=== PATIENT | female | born 1980 | race African-American/Black ===

== ENCOUNTER 2017-01-08 20:09 | Emergency (ER) | payer OTHER ==
[~2017-01-08] VITALS: Ht 162.6 cm; Wt 48.0 kg
[~2017-01-08 20:09] MED LIST: ACYC400T PO; LOES1TAB2 PO; SPRI28TA PO
[2017-01-08 20:19] VITALS: BP 126/78; PULSE 82; RESP 20; TEMP 98.7; O2SAT 10; O2SAT 100
[2017-01-08 20:22] VITALS: PULSE 85; RESP 16; O2SAT 100
--- NOTE | 2017-01-08 21:23 | PD ---
HPI Chief Complaint: Psychiatric Symptoms Time Seen by Provider: 21:09 Travel History International Travel<30 days: No Contact w/Intl Traveler<30days: No Traveled to known affect area: No History of Present Illness HPI 36-year-old female that presents to the ED for evaluation of Dilcia nance. Patient was brought here under Ha act as apparently she made some statements to her significant other relating wanting to end her life and having a lot of stresses and struggles. She was Ha acted for her own safety. She states that the only medication she takes currently is acyclovir. She denies any chest pain or shortness of breath. She has positive . She does any drugs or alcohol. No cuts. Per patient she's been dealing with depression recently secondary to new stresses. She denies any history of psychiatric illness. PFSH Past Medical History ?: Not LMP: 12/23/16 Social History Alcohol Use: No Tobacco Use: No Substance Use: No Allergies-Medications (Allergen,Severity, Reaction): Coded Allergies: penicillin G (Unverified Allergy, Unknown, 12/18/16) Reported Meds & Prescriptions Reported Meds & Active Scripts Active Sprintec 28 (Norgestimate-Ethinyl Estradiol) 0.25-35 mg-Mcg Tab 1 Tab PO DAILY Acyclovir 400 Mg Tab 400 Mg PO BID Loestrin Fe 1/20 (Norethindrone-Ethinyl Estradiol-Fe) 1-20 Mg-Mcg Tab 1 Tab PO DAILY Review of Systems Except as stated in HPI: all other systems reviewed are Neg Physical Exam Narrative GENERAL: SKIN: Warm and dry. HEAD: Atraumatic. Normocephalic. EYES: Pupils equal and round. No scleral icterus. No injection or drainage. ENT: No nasal bleeding or discharge. Mucous membranes pink and moist. Tongue is midline. No uvula deviation. NECK: Trachea midline. No JVD. CARDIOVASCULAR: Regular rate and rhythm. No murmurs, S3, S4. RESPIRATORY: No accessory muscle use. Clear to auscultation. Breath sounds equal bilaterally. GASTROINTESTINAL: Abdomen soft, non-tender, nondistended. Hepatic and splenic margins not palpable. MUSCULOSKELETAL: Extremities without clubbing, cyanosis, or edema. No obvious deformities. Full range of motion of the upper and lower extremities bilaterally. 2+ pulses bilaterally. NEUROLOGICAL: Awake and alert. No obvious cranial nerve deficits. Motor grossly within normal limits. Five out of 5 muscle strength in the arms and legs. Normal speech. PSYCHIATRIC: Appropriate mood and affect; insight and judgment normal. Data Data Last Documented VS Vital Signs Date Time Temp Pulse Resp B/P (MAP) Pulse Ox O2 Delivery O2 Flow Rate FiO2 01/09/17 05:46 97.8 100 18 105/67 (80) 100 Orders Orders Complete Blood Count With Diff (01/08/17 20:33) Comprehensive Metabolic Panel (01/08/17 20:33) Ed Urine Pregnancytest Poc (01/08/17 20:33) Psych Screen (01/08/17 20:33) Drug Screen, Random Urine (01/08/17 20:33) Alcohol (Ethanol) (01/08/17 20:33) Salicylates (Aspirin) (01/08/17 20:33) Tylenol (Acetaminophen) (01/08/17 20:33) Diet Regular Basic (01/09/17 Breakfast) Diet Regular Basic (01/09/17 Lunch) Labs Laboratory Tests Test 01/08/17 21:00 White Blood Count 4.6 TH/MM3 Red Blood Count 4.06 MIL/MM3 Hemoglobin 12.6 GM/DL Hematocrit 38.8 % Mean Corpuscular Volume 95.6 FL Mean Corpuscular Hemoglobin 31.0 PG Mean Corpuscular Hemoglobin Concent 32.4 % Red Cell Distribution Width 12.2 % Platelet Count 342 TH/MM3 Mean Platelet Volume 7.5 FL Neutrophils (%) (Auto) 39.3 % Lymphocytes (%) (Auto) 50.5 % Monocytes (%) (Auto) 7.9 % Eosinophils (%) (Auto) 1.3 % Basophils (%) (Auto) 1.0 % Neutrophils # (Auto) 1.8 TH/MM3 Lymphocytes # (Auto) 2.3 TH/MM3 Monocytes # (Auto) 0.4 TH/MM3 Eosinophils # (Auto) 0.1 TH/MM3 Basophils # (Auto) 0.0 TH/MM3 CBC Comment DIFF FINAL Differential Comment Blood Urea Nitrogen 9 MG/DL Creatinine 0.79 MG/DL Random Glucose 82 MG/DL Total Protein 8.8 GM/DL Albumin 4.8 GM/DL Calcium Level 9.3 MG/DL Alkaline Phosphatase 60 U/L Aspartate Amino Transf (AST/SGOT) 14 U/L Alanine Aminotransferase (ALT/SGPT) 22 U/L Total Bilirubin 0.5 MG/DL Sodium Level 138 MEQ/L Potassium Level 3.5 MEQ/L Chloride Level 101 MEQ/L Carbon Dioxide Level 27.4 MEQ/L Anion Gap 10 MEQ/L Estimat Glomerular Filtration Rate 101 ML/MIN Salicylates Level LESS THAN 1.7 MG/DL Urine Opiates Screen NEG Acetaminophen Level LESS THAN 2.0 MCG/ML Urine Barbiturates Screen NEG Urine Amphetamines Screen NEG Urine Benzodiazepines Screen NEG Urine Cocaine Screen NEG Urine Cannabinoids Screen NEG Ethyl Alcohol Level LESS THAN 3 MG/DL MDM Medical Decision Making Medical Screen Exam Complete: Yes Emergency Medical Condition: Yes Medical Record Reviewed: Yes Interpretation(s) CBC & BMP Diagram 01/08/17 21:00 Total Protein 8.8 H, Albumin 4.8, Calcium Level 9.3, Alkaline Phosphatase 60, Aspartate Amino Transf (AST/SGOT) 14 L, Alanine Aminotransferase (ALT/SGPT) 22, Total Bilirubin 0.5 Differential Diagnosis Depression versus suicidal ideation versus anxiety versus adjustment disorder versus mood disorder versus bipolar disorder versus schizophrenia versus paranoid disorder versus psychosis versus substance abuse versus alcohol abuse versus alcohol induced psychosis versus homicidality addition versus cutting versus personality disorder Narrative Course 36-year-old female that presents to the ED for evaluation of psych. Patient was properly examined and was found to have signs and symptoms consistent with psychiatric illness. No sign of acute medical distress. Labs were drawn. Patient will be medically clear. Dispo pending psychiatric eval. Mental health screening was discussed with the patient. Diagnosis Primary Impression: Mood disorder Krishna Pastrana Jan 08, 2017 21:23
[2017-01-08 22:18] LABS: AUTOMATED NEUTROPHIL # 1.8 TH/MM3 (1.8-7.7); EOSINOPHIL # 0.1 TH/MM3 (0-0.4); EOSINOPHIL % 1.3 % (0.0-4.0); HEMATOCRIT 38.8 % (35.0-46.0); HEMO FLAGS DIFF FINAL; LYMPH % 50.5 % (9.0-44.0); LYMPHOCYTE # 2.3 TH/MM3 (1.0-4.8); MEAN CELL VOLUME 95.6 FL (80.0-100.0); MEAN CORPUSCULAR HGB CONC 32.4 % (32.0-36.0); MONO % 7.9 % (0.0-8.0); NEUT % 39.3 % (16.0-70.0); PLATELET COUNT 342 TH/MM3 (150-450); RED BLOOD COUNT 4.06 MIL/MM3 (4.00-5.30); RED CELL DISTRIBUTION WIDTH 12.2 % (11.6-17.2); WHITE BLOOD COUNT 4.6 TH/MM3 (4.0-11.0)
[2017-01-08 22:38] LABS: ANION GAP 10 MEQ/L (5-15); BICARBONATE 27.4 MEQ/L (21.0-32.0); BLOOD UREA NITROGEN 9 MG/DL (7-18); CHLORIDE 101 MEQ/L (98-107); GLOMERULAR FILTRATION RATE 101 ML/MIN (>89); POTASSIUM 3.5 MEQ/L (3.5-5.1); SODIUM (NA) 138 MEQ/L (136-145)
[2017-01-08 22:39] LABS: ALCOHOL LESS THAN 3 MG/DL (0-5)
[2017-01-08 22:40] LABS: ALT (GPT) 22 U/L (10-53); AST (GOT) 14 U/L (15-37)
[2017-01-08 22:41] LABS: ALKALINE PHOSPHATASE 60 U/L (45-117); TOTAL BILIRUBIN ADULT 0.5 MG/DL (0.2-1.0)
[2017-01-08 22:49] LABS: ACETAMINOPHEN LESS THAN 2.0 MCG/ML (10.0-30.0)
[2017-01-08 23:20] VITALS: BP 117/80; PULSE 80; RESP 18; TEMP 98.1; O2SAT 100
[2017-01-09 02:13] VITALS: BP 116/62; PULSE 73; RESP 18; TEMP 98.1; O2SAT 97
[2017-01-09 05:46] VITALS: BP 105/67; PULSE 100; RESP 18; TEMP 97.8; O2SAT 100
--- NOTE | 2017-01-09 10:57 | PD ---
Physical Exam Time Seen by Provider: 10:55 ALYSSA Chao, evaluated this patient and has lifted the Ha act and the patient will be discharged home. Data Data Last Documented VS Vital Signs Date Time Temp Pulse Resp B/P (MAP) Pulse Ox O2 Delivery O2 Flow Rate FiO2 01/09/17 05:46 97.8 100 18 105/67 (80) 100 Orders Orders Complete Blood Count With Diff (01/08/17 20:33) Comprehensive Metabolic Panel (01/08/17 20:33) Ed Urine Pregnancytest Poc (01/08/17 20:33) Psych Screen (01/08/17 20:33) Drug Screen, Random Urine (01/08/17 20:33) Alcohol (Ethanol) (01/08/17 20:33) Salicylates (Aspirin) (01/08/17 20:33) Tylenol (Acetaminophen) (01/08/17 20:33) Diet Regular Basic (01/09/17 Breakfast) Labs Laboratory Tests Test 01/08/17 21:00 White Blood Count 4.6 TH/MM3 Red Blood Count 4.06 MIL/MM3 Hemoglobin 12.6 GM/DL Hematocrit 38.8 % Mean Corpuscular Volume 95.6 FL Mean Corpuscular Hemoglobin 31.0 PG Mean Corpuscular Hemoglobin Concent 32.4 % Red Cell Distribution Width 12.2 % Platelet Count 342 TH/MM3 Mean Platelet Volume 7.5 FL Neutrophils (%) (Auto) 39.3 % Lymphocytes (%) (Auto) 50.5 % Monocytes (%) (Auto) 7.9 % Eosinophils (%) (Auto) 1.3 % Basophils (%) (Auto) 1.0 % Neutrophils # (Auto) 1.8 TH/MM3 Lymphocytes # (Auto) 2.3 TH/MM3 Monocytes # (Auto) 0.4 TH/MM3 Eosinophils # (Auto) 0.1 TH/MM3 Basophils # (Auto) 0.0 TH/MM3 CBC Comment DIFF FINAL Differential Comment Blood Urea Nitrogen 9 MG/DL Creatinine 0.79 MG/DL Random Glucose 82 MG/DL Total Protein 8.8 GM/DL Albumin 4.8 GM/DL Calcium Level 9.3 MG/DL Alkaline Phosphatase 60 U/L Aspartate Amino Transf (AST/SGOT) 14 U/L Alanine Aminotransferase (ALT/SGPT) 22 U/L Total Bilirubin 0.5 MG/DL Sodium Level 138 MEQ/L Potassium Level 3.5 MEQ/L Chloride Level 101 MEQ/L Carbon Dioxide Level 27.4 MEQ/L Anion Gap 10 MEQ/L Estimat Glomerular Filtration Rate 101 ML/MIN Salicylates Level LESS THAN 1.7 MG/DL Urine Opiates Screen NEG Acetaminophen Level LESS THAN 2.0 MCG/ML Urine Barbiturates Screen NEG Urine Amphetamines Screen NEG Urine Benzodiazepines Screen NEG Urine Cocaine Screen NEG Urine Cannabinoids Screen NEG Ethyl Alcohol Level LESS THAN 3 MG/DL [facility] Supervised Visit with MAXIMILIANO: No Narrative Course ALYSSA Cummings, evaluated this patient and has lifted the Ha act and the patient will be discharged home. Patient contracts safety. She denies suicidal and homicidal ideations at this time. Her fiances coming to pick her up. She will be provided community resources for follow-up to [facility]. Has family and friends for support. Patient is medically stable for discharge. Diagnosis Primary Impression: Mood disorder Referrals: Primary Care Physician Psychiatrist Inderjit POLLARD Behavioral Patient Instructions: General Instructions, Mood Disorders (ED) Additional Instruction: Contract safety to your self and others Follow-up with psychiatry Follow-up with primary care provider Follow-up with Gonzalo Ford Return to the emergency department immediately with worsening of symptoms Med/Other Pt SpecificInfo: No Meds Exist/No RX given Disposition: 01 DISCHARGE HOME Condition: Stable Trisha Park Jan 09, 2017 10:57
--- NOTE | 2017-01-09 10:59 | PD ---
History of Present Illness Chief Complaint: Psychiatric Symptoms Time Seen by Provider: 10:25 Travel History International Travel<30 Days: No Contact w/Intl Traveler<30days: No Known affected area: No Legal Status Legal Status: Ha Act Ha Act Signed By: Shadi Garcia Ha Act Comment: 2016 @ 1943 History of Present Illness: History of Present Illness HPI 36-year-old female with no previous psychiatric history that presents to the ED for evaluation of Ha act initiated by DEBI. The Ha act alleges that she wrote on facebook " life is too much. It's too much to handle". She did not make any attempt at harming herself. The patient was monitored in [facility] and she presented no suicidality and no behavioral dysregulation. EMR reviewed. [place] with [facility] [place]. Patient seen. EMR reviewed. Staff have contacted her devang who does not have any concerns if she is discharged. She is alert, oriented engaging and cooperative. Speech is clear and logical. There is no psychosis and no kay. She states that she has been having some issues with her devang's mother and admits to writing on Facebook that she was feeling overwhelmed. She denies that she made any suicidal statements or that she was thinking about harming herself. She admits to turning her phone off and sitting in driving around for several hours before going home. She states " I was upset and did not want to say something i diodn't mean". She denies any significant symptom of depression. She is requesting discharge as she is travelling to [place] with her family today. PFSH Past Medical History ?: Not LMP: 12/23/16 Psychiatric History Psychiatric History Hx Psychiatric Treatment: DENIES. As a senior in high school she ingested some toxic liquids as a suicide gesture. History of Inpatient Treatment: No Guns or firearms in home: No Social History Born In [place]. Has 3 children. Lives with her devang x 1 and 1/2 year. Works in a cleaning business. Hx Alcohol Use: No Hx Tobacco Use: No Hx Substance Use: No Hx of Substance Use Treatment: No Family Psychiatric History Denies any Allergies-Medications (Allergen,Severity, Reaction): Coded Allergies: penicillin G (Unverified Allergy, Unknown, 12/18/16) Reported Meds & Prescriptions Reported Meds & Active Scripts Active Sprintec 28 (Norgestimate-Ethinyl Estradiol) 0.25-35 mg-Mcg Tab 1 Tab PO DAILY Acyclovir 400 Mg Tab 400 Mg PO BID Loestrin Fe 1/20 (Norethindrone-Ethinyl Estradiol-Fe) 1-20 Mg-Mcg Tab 1 Tab PO DAILY Review of Systems Except as stated in HPI: all other systems reviewed are Neg Exam Alert: Yes [place]: Person (ox4) Mood: Anxious Affect: Appropriate Speech: Clear, Logical Eye Contact: Normal Memory Intact: Comment (No impairment) Hallucinations: Other (Negative) Delusions: No Suicidal: Ideation (Deneis any) Homicidal: Ideation (Deneis any) Insight/Judgement Fair. Not impaired. MDM Medical Decision Making Medical Record Reviewed: Yes Assessment/Plan 36-year-old female with no previous psychiatric history that presents to the ED for evaluation of Ha act initiated by DEBI. The Ha act alleges that she wrote on facebook " life is too much. It's too much to handle" Patient is not psychotic, not manic. No suicidal or homicidal ideation, intent or plan. Presented no suicidality while on unit. She is future oriented with adequate protective factors. Based on available evidence the patient does not meet BA criteria. Collateral contact obtained from family with no reported concerns for her safety. She is provided psychoeducation and supportive interventions Ba is lifted. Discharge home. Orders Orders Complete Blood Count With Diff (01/08/17 20:33) Comprehensive Metabolic Panel (01/08/17 20:33) Ed Urine Pregnancytest Poc (01/08/17 20:33) Psych Screen (01/08/17 20:33) Drug Screen, Random Urine (01/08/17 20:33) Alcohol (Ethanol) (01/08/17 20:33) Salicylates (Aspirin) (01/08/17 20:33) Tylenol (Acetaminophen) (01/08/17 20:33) Diet Regular Basic (01/09/17 Breakfast) Results Vital Signs Date Time Temp Pulse Resp B/P (MAP) Pulse Ox O2 Delivery O2 Flow Rate FiO2 01/09/17 05:46 97.8 100 18 105/67 (80) 100 01/09/17 02:13 98.1 73 18 116/62 (80) 97 01/08/17 23:20 98.1 80 18 117/80 (92) 100 01/08/17 20:22 85 16 100 01/08/17 20:19 98.7 82 20 126/78 (94) 100 Laboratory Tests Test 01/08/17 21:00 White Blood Count 4.6 Red Blood Count 4.06 Hemoglobin 12.6 Hematocrit 38.8 Mean Corpuscular Volume 95.6 Mean Corpuscular Hemoglobin 31.0 Mean Corpuscular Hemoglobin Concent 32.4 Red Cell Distribution Width 12.2 Platelet Count 342 Mean Platelet Volume 7.5 Neutrophils (%) (Auto) 39.3 Lymphocytes (%) (Auto) 50.5 Monocytes (%) (Auto) 7.9 Eosinophils (%) (Auto) 1.3 Basophils (%) (Auto) 1.0 Neutrophils # (Auto) 1.8 Lymphocytes # (Auto) 2.3 Monocytes # (Auto) 0.4 Eosinophils # (Auto) 0.1 Basophils # (Auto) 0.0 CBC Comment DIFF FINAL Differential Comment Blood Urea Nitrogen 9 Creatinine 0.79 Random Glucose 82 Total Protein 8.8 Albumin 4.8 Calcium Level 9.3 Alkaline Phosphatase 60 Aspartate Amino Transf (AST/SGOT) 14 Alanine Aminotransferase (ALT/SGPT) 22 Total Bilirubin 0.5 Sodium Level 138 Potassium Level 3.5 Chloride Level 101 Carbon Dioxide Level 27.4 Anion Gap 10 Estimat Glomerular Filtration Rate 101 Salicylates Level LESS THAN 1.7 Urine Opiates Screen NEG Acetaminophen Level LESS THAN 2.0 Urine Barbiturates Screen NEG Urine Amphetamines Screen NEG Urine Benzodiazepines Screen NEG Urine Cocaine Screen NEG Urine Cannabinoids Screen NEG Ethyl Alcohol Level LESS THAN 3 Diagnosis Primary Impression: Adjustment disorder Psychiatrically Cleared: Yes Med/ Other Pt Specific Info: No Meds Exist/No RX given Disposition: 01 DISCHARGE HOME Condition: Stable Problem Qualifiers Primary Impression: Adjustment disorder Qualified Codes: F43.21 - Adjustment disorder with depressed mood Zoila Pena Jan 09, 2017 10:59
== END 2017-01-09 11:53 | disposition home or self-care (01) ==
LOC: NEPJ 20:09
DX: F43.21 Adjustment disorder with depressed mood (principal); F39 Unspecified mood [affective] disorder; Z88.0 Allergy status to penicillin; Z79.899 Other long term (current) drug therapy
CPT/HCPCS: 80053; 80307; 84703; 85025; 99284